=== PATIENT | female | born 1985 | race Caucasian/White ===

== ENCOUNTER 2020-02-26 14:20 | Outpatient (CLI) | payer BC, SELFPAY ==
--- NOTE | ~2020-02-26 | MM_ITS ---
EXAMINATION: MM screening [place] BI w chucho HISTORY: Screening mammogram TECHNIQUE: Craniocaudal and mediolateral oblique 3-D tomosynthesis images were obtained and synthetic 2-D images were generated. CAD analysis was submitted and interpreted. COMPARISON: 02/16/2019 bilateral digital screening mammogram BREAST PARENCHYMAL COMPOSITION: The breasts are heterogeneously dense, which may obscure small masses . FINDINGS: There is no evidence of suspicious mass, calcification, or architectural distortion to sugg est malignancy in either breast. There has been no suspicious interval change. IMPRESSION: 1. No mammographic evidence of malignancy. 2. Recommend routine screening mammography in one year. BI-RADS Category 1: Negative Reviewed, dictated and finalized at location A. RLAY STITCHER
== END 2020-02-26 14:21 | disposition home or self-care (01) ==
LOC: CHSIMG 14:23
PROVIDERS: PCP Nurse Practitioner; Visit Provider Obstetrics & Gynecology
DX: Z12.31 Encounter for screening mammogram for malignant neoplasm of breast (principal)
CPT/HCPCS: 77063; 77067

== ENCOUNTER 2020-03-19 14:57 | Outpatient (CLI) | payer BC, SELFPAY ==
--- NOTE | ~2020-03-19 | US_ITS ---
US thyroid INDICATION: Thyroid goiter TECHNIQUE: Real-time sonographic images of the thyroid gland were obtained. COMPARISON: No prior studies for comparison. FINDINGS: The right thyroid lobe measures 5.1 x 1.7 x 1.7 cm. The left thyroid lobe measures 4 x 1.3 x 1.3 cm. In the right lobe there is a mixed solid and cystic hypoechoic mass measuring 1.4 x 1.3 x 1 cm which is wider than tall, smooth smoothly marginated with a few microcalcifications,, TR 3. In t he left lobe there is a 3 mm cystic lesion, likely benign. IMPRESSION: 1. Right thyroid mass is likely benign. Follow-up ultrasound in 12 months recommended. Reviewed, dictated and finalized at location B. ABLE SAWMILL OPERATOR IMPRESSION: 1. Right thyroid mass is likely benign. Follow-up ultrasound in 12 months maxwell mmended.
[2020-03-19 16:08] LABS: Free T4 Free Thyroxine 0.79 ng/dL (0.76-1.46); Thyroid Stimulating Hormone 2.25 uIU/mL (0.36-3.74)
== END 2020-03-19 14:58 | disposition home or self-care (01) ==
PROVIDERS: PCP Nurse Practitioner; Visit Provider Obstetrics & Gynecology
DX: E04.9 Nontoxic goiter, unspecified (principal)
CPT/HCPCS: 36415; 76536; 84439; 84443

== ENCOUNTER 2023-05-15 14:21 | Outpatient (CLI) | payer OTHER, SELFPAY ==
--- NOTE | ~2023-05-15 | US_ITS ---
EXAMINATION: US thyroid DATE: 05/15/2023 14:42 INDICATION: Thyroid nodules TECHNIQUE: Multiple ultrasound images of the thyroid were obtained. COMPARISON: None. FINDINGS: The right thyroid lobe measures 5.2 x 1.7 x 1.5 cm. The left thyroid lobe measures 3.2 x 1.5 x 1.4 c m. The isthmus measures 6 mm . There is a 6 mm solid hypoechoic nodule with equivalent height and wit h stress and irregular margins and without echogenic foci (TI-RADS 4, moderately suspicious , FNA if >=1.5 cm, annual followup is >=1 cm). There is a 4 mm anechoic cystic TI RADS 1 nodule in the left th yroid lobe. There is normal echotexture, echogenicity and vascular flow throughout the remainder of t he thyroid gland. IMPRESSION: 1. A couple subcentimeter thyroid nodules which remain below size criteria for either biopsy or follo w-up. Recommend clinical followup with repeat imaging if there are changes on physical exam. Reviewed, dictated and finalized at location B. IMPRESSION: 1. A couple subcentimeter thyroid nodules which remain below size criteria for either biopsy or follow-up. Recommend clinical followup with repeat imaging if there are changes on physical exam.
== END 2023-05-15 14:22 | disposition home or self-care (01) ==
LOC: CHSIMG 14:24
PROVIDERS: PCP Nurse Practitioner; Visit Provider Nurse Practitioner
DX: E04.2 Nontoxic multinodular goiter (principal)
CPT/HCPCS: 76536

== ENCOUNTER 2024-05-19 12:39 | Outpatient (CLI) | payer OTHER, SELFPAY ==
--- NOTE | ~2024-05-19 | US_ITS ---
EXAMINATION: US thyroid DATE: 05/19/2024 13:02 INDICATION: Follow-up nodules TECHNIQUE: Multiple ultrasound images of the thyroid were obtained. COMPARISON: 05/15/2023 and dating back to 03/19/2020 FINDINGS: The right thyroid lobe measures 4.2 x 1.6 x 1.5 cm. Within the upper pole of the right lobe of the thyroid gland is a 5.6 x 5.3 x 4.7 mm nodule: Composition - spongiform Echogenicity -isoechoic (1) Shape - wider than tall Margin -ill-defined Echogenic foci - none. = TR1, benign This focus is likely sequelae of previously enlarged nodule seen in 2020 (measuring 14 mm in greatest dimension) which has since undergone involution. The left thyroid lobe measures 4.0 x 1.5 x 1.7 cm. Within the left lobe of the thyroid gland is a 3.6 x 3.8 x 2.4 mm nodule: Composition -mixed cystic and solid (1) Echogenicity -isoechoic (1) Shape - wider than tall Margin -smooth Echogenic foci - none. = TR 2, not suspicious. This nodule is unchanged dating back to 2020 for which no further follow-up is needed. The isthmus measures 0.5cm in anterior to posterior dimension. There is normal echotexture and echogenicity throughout the remainder of the thyroid gland. No additional discrete nodules identified. Normal vascular flow is present. IMPRESSION: TR 1 nodule within the right lobe of the thyroid gland measuring 5.6 mm in greatest dimension. This n odule is benign by TIRADS criteria for which no further follow-up is needed. TR2 nodule in the left lobe of the thyroid gland measuring 3.8 mm in greatest dimension. This nodule is not sonographically suspicious and no FNA is recommended Follow-up may be performed. Reviewed, dictated and finalized at location A. IMPRESSION: TR 1 nodule within the right lobe of the thyroid gland measuring 5.6 mm in grea test dimension. This nodule is benign by TIRADS criteria for which no further f ollow-up is needed. TR2 nodule in the left lobe of the thyroid gland measuring 3.8 mm in greatest d imension. This nodule is not sonographically suspicious and no FNA is recommended Follow-up may be performed.
--- OUTSIDE RECORDS SUMMARY | 2024-05-19 13:47 | XMS_ITS | Clinical Summary ---
Author Organization [facility] Address [facility] [place] [address] Care Team Providers Care Infrastructure Tech Name Role Phone New Referring, Provider Primary Care Provider Un available Allergies No known active allergies Medications No known medications Active Problems Problem Noted Date Diagnosed Date Rupture of anterior cruciate ligament of left kn ee, sequela 10/29/2018 Resolved Problems Problem Noted Date Diagnosed Date Resolved Date Follow-up examination after orthopedic surgery 07/18/2018 10/17/2019 Family History Medical History Relation Comments Diabetes Father Heart Disease Father Stroke Father Lung Cancer Mother Relation Status Comments Father Alive Mother Social History Tobacco Use Types Packs/Day Years Used Date Smoking Tobacco: Never Smokeless Tobacco: Never Alcohol Use Standard Drinks/Week Comments No 0 (1 standard drink = 0.6 oz pur e alcohol) AUDIT-C Answer Date Recorded Frequency of Alcohol Consumption Never 07/18/2018 Average Number of Drinks Not on file 019 Frequency of Binge Drinking Not on file 07/06 Comments Unknown Sex and Gender Information Value Date Recorded Sex Assigned at Not on file Legal Sex Female 11:19 PM SAFETY PERSON Gender Identity Not on file Sexual Orientation Not on file Last Filed Vital Signs Vital Sign Reading Time Taken Comments Blood Pressure - - Pulse - - Temperature - - Respiratory Rate - - Oxygen Saturation - - Inhaled Oxygen Concentration - - Weight 83.9 kg (185 lb) 07/18/2018 11:09 AM CDT Height 160 cm (5' 3 ) 07/18/2018 11:09 AM CDT Body Mass Index 32.77 07/18/2018 11:09 AM CDT Plan of Treatment Health Maintenance Due Date Last Done Comments Cervical Cancer Screening Pa p Smear (Age 30 to 64) Every 3 Years 1984 Annual Physical 01/09/1987 Hepatitis C 01/09/2002 DTaP, Tdap and Td Vaccines ( 1 - Tdap) 01/09/2003 Hepatitis B Vaccines (1 of 3 - 19+ 3-dose series) 01/09/2003 Cervical Cancer Screening Pa p with HPV Testing (Age 30 to 64) Every 5 Years 01/09/2014 Cervical Cancer Screening with HPV 01/09/2014 COVID-19 Vaccine (1 - 2023-2 5 season) 2023 Mammogram Screening 2024 HPV Vaccines Aged Out No longer eligi ble based on patient's age to complete this topic Meningococcal B Vaccine Aged Out No l onger eligible based on patient's age to complete this topic Meningococcal Vaccine Aged Out No naseem karon eligible based on patient's age to complete this topic Pneumococcal Vaccine: Pediat rics (0 to 5 Years) and At-Risk Patients (6 to 49 Years) Aged Out No longer eligible b ased on patient's age to complete this topic RSV Immunizations Under 20 Months Aged Out No longer eligible based on patient's age to complete this topic Insurance Care Teams Infrastructure Tech Relationship Specialty Start Date End Date New Referring, Provider PCP - General UNKNOWN PHYSICIAN SPECIALTY 07/17/18
== END 2024-05-19 12:40 | disposition home or self-care (01) ==
LOC: CHSIMG 12:41
PROVIDERS: PCP Nurse Practitioner; Visit Provider Nurse Practitioner
DX: E04.2 Nontoxic multinodular goiter (principal)
CPT/HCPCS: 76536

== ENCOUNTER 2024-10-09 07:14 | Outpatient (CLI) | payer OTHER, SELFPAY ==
--- NOTE | ~2024-10-09 | MM_ITS ---
EXAMINATION: MM screening [facility] BI w chucho HISTORY: Screening TECHNIQUE: Craniocaudal and mediolateral oblique 3-D tomosynthesis images were obtained and synthetic 2-D images were generated. CAD analysis was submitted and interpreted. COMPARISON: Mammograms from 02/26/2020 and 02/06/2019 BREAST PARENCHYMAL COMPOSITION: The breasts are heterogeneously dense, which may obscure small masses. FINDINGS: There is no evidence of suspicious mass, calcification, or architectural distortion in either breast to suggest malignancy. There has been no significant interval change. IMPRESSION: 1. No mammographic evidence of malignancy. Recommend routine screening mammography in one year. BI-RADS Category 1: Negative Reviewed, dictated and finalized at location Q. IMPRESSION: 1. No mammographic evidence of malignancy. Recommend routine screening mammogra phy in one year. BI-RADS Category 1: Negative
== END 2024-10-09 07:15 | disposition home or self-care (01) ==
LOC: CHSIMG 07:15
PROVIDERS: PCP Nurse Practitioner Family; Visit Provider Obstetrics & Gynecology
DX: Z12.31 Encounter for screening mammogram for malignant neoplasm of breast (principal)
CPT/HCPCS: 77063; 77067